=== PATIENT | male | born 1940 | race Caucasian/White ===

== ENCOUNTER 2018-06-07 08:03 | Day surgery (SDC) | payer MEDICARE ==
[2018-06-05 09:19] VITALS: BMI 32.3
[2018-06-07] MEDS ORDERED: Lidocaine 2% Jelly (Uro-Jet) ONE (10:45)
[2018-06-07] MEDS ORDERED: Midazolam 2 MG/2 ML VIAL ONE (10:45)
[2018-06-07] MEDS ORDERED: Iohexol 240 (50 ml) ONE (10:45)
[2018-06-07] MEDS ORDERED: cefTRIAXone 1 gm 1 GM/100 ML BAG IVPB ONE (10:45)
[2018-06-07] MEDS ORDERED: Propofol 10 mg/ml Inj (20 ML) ONE (10:50)
[2018-06-07 13:05] VITALS: PULSE 86; RESP 18; O2SAT 96
[2018-06-07 13:32] VITALS: BP 132/93; TEMP 97.7
--- NOTE | 2018-06-07 22:44 | OP ---
PROCEDURE DATE: 06/07/2018 LOCATION: [facility]. PREOPERATIVE DIAGNOSES: Urethral stricture, gross hematuria. POSTOPERATIVE DIAGNOSES: Urethral stricture, benign prostatic hyperplasia. PROCEDURE: Cystoscopy with optical internal urethrotomy and placement of Schofield catheter. SURGEON: Emile Castillo MD OPERATIVE DICTATION: The patient was placed in lithotomy position, prepped and draped in the usual fashion and premedicated with 1 g of Rocephin IV piggyback. A 22-Palauan scope was introduced per urethra, and the mid urethra revealed a moderate stricture, so we could not advance the instrument. Under fluoroscopic guidance, I advanced a Glidewire into the bladder. We then used this throughout the case as a safety. The cystoscope was removed, and then an optical urethrotome was introduced per urethra alongside the guidewire. An incision was made at the 12 o'clock position. We were able to advance the scope proximally to the areas of incision. These areas were quite tight and fibrotic suggesting previous resections in these areas as well. Finally, I was able to remove the scope and replaced with a 17-Palauan scope that I was able to introduce into the bladder. The bladder neck was reasonably patent and not as tight as when previously seen a few years ago for previous cystoscopy. The bladder did not have any tumors or calculi. The was no active bleeding from the prostate or the bladder. We now decided to introduce a Councill 17-Palauan catheter over the guidewire after of course removing the urethrotome. This was done atraumatically. The patient will be sent home with a leg bag. Emile Castillo MD
--- NOTE | 2018-06-08 10:49 | RAD ---
PROCEDURE: HISTORY: As Above COMPARISON: None TECHNIQUE: Total fluoroscopic time utilized during the procedure: 1.9 seconds. Total dose 0.37547 mGy m squared FINDINGS: Submitted images from the current procedure: 1 please refer to the physician's notes performing the procedure. IMPRESSION: Less than 1 hour fluoroscopic time utilized during performance of the procedure
== END 2018-06-07 13:35 | disposition home or self-care (01) ==
LOC: C.SDS 08:03
PROVIDERS: ATTEND Urology
DX: N35.919 Unspecified urethral stricture, male, unspecified site (principal); R31.0 Gross hematuria; E11.9 Type 2 diabetes mellitus without complications; I10 Essential (primary) hypertension; E78.5 Hyperlipidemia, unspecified; F32.9 Major depressive disorder, single episode, unspecified
CPT/HCPCS: 52276; 82948; J0696

== ENCOUNTER 2018-06-14 05:21 | Emergency (ER) | payer MEDICARE, OTHER ==
[2018-06-14 05:21] VITALS: BMI 32.3
[2018-06-14 05:42] VITALS: O2SAT 98
--- NOTE | 2018-06-14 05:43 | C.PDOC ---
History Of Present Illness Patient presents to the ER with a complaint of a headache that woke him up from sleep this morning. He checked his blood pressure at home and noticed it was elevated prompting ER visit. However, on arrival to ER patient's pressure and headache have improved. Denies vision changes, weakness, fever, chills, nausea, or vomiting. Time Seen by Provider: 06/14/18 05:43 Chief Complaint (Nursing): High Blood Pressure History Per: Patient History/Exam Limitations: no limitations Onset/Duration Of Symptoms: Hrs Current Symptoms Are (Timing): Better Associated Symptoms: Headache. denies: Chest Pain, Dyspnea, Dizziness, Blurred Vision, Focal Weakness Quality Of Symptoms: Asymptomatic Severity: Moderate Pain Scale Rating Of: 4 Exacerbating Factor(s): Pos: None Recent travel outside of the [place]: No Past Medical History Reviewed: Historical Data, Nursing Documentation, Vital Signs Vital Signs: Last Vital Signs Temp 97.9 F 06/14/18 05:35 Pulse 91 H 06/14/18 05:35 Resp 14 06/14/18 05:35 BP 155/93 H 06/14/18 05:35 Pulse Ox 98 06/14/18 05:35 - Medical History PMH: Depression, Fractures (right great toe), HTN, Hypercholesterolemia Denies: Chronic Kidney Disease - [facility] Procedures CYSTOSCOPY NEC (05/03/15) INSERT INDWELLING CATH (04/14/15) OTH TRANSURETHRAL PROSTATECTOMY (05/03/15) PACKED CELL TRANSFUSION (05/03/15) TU BLADDER CLEARANCE (05/03/15) URETH STRICTURE RELEASE (04/14/15) Family History: States: No Known Family Hx - Social History Hx Tobacco Use: No Hx Alcohol Use: No Hx Substance Use: No Review Of Systems Constitutional: Negative for: Fever, Chills, Weakness Eyes: Negative for: Vision Change Cardiovascular: Negative for: Chest Pain, Palpitations Respiratory: Negative for: Cough, Shortness of Breath Gastrointestinal: Negative for: Nausea, Vomiting Neurological: Positive for: Headache Physical Exam - Physical Exam Appears: Non-toxic Skin: Warm, Dry Head: Normacephalic Eye(s): bilateral: Normal Inspection, PERRL, EOMI Oral Mucosa: Moist Chest: Symmetrical, No Tenderness Cardiovascular: Rhythm Regular Respiratory: No Rales, No Rhonchi, No Wheezing Gastrointestinal/Abdominal: Soft, No Tenderness Neurological/Psych: Oriented x3, Other (No focal deficits) ED Course And Treatment - Laboratory Results Result Diagrams: 06/14/18 05:58 06/14/18 05:58 ECG: Interpreted By Me, Viewed By Me ECG Rhythm: Sinus Rhythm (85), Nonspecific Changes O2 Sat by Pulse Oximetry: 98 (Room air) Pulse Ox Interpretation: Normal - Radiology CXR: Interpreted by Me, Viewed By Me CXR Interpretation: Yes: Other (unchanged from 06/05/18). No: Infiltrates, Fracture, Pnemothorax Progress Note: CT head, blood work, EKG, CXR, and urinalysis ordered. Reevaluation Time: 06:20 Reassessment Condition: Improved Disposition Counseled Patient/Family Regarding: Studies Performed, Diagnosis, Need For Followup - Disposition Referrals: Delia Ortega MD [Medical Doctor] - Disposition: HOME/ ROUTINE Disposition Time: 05:43 Condition: FAIR Instructions: High Blood Pressure (DC) Forms: [employer] (Kazakh) - Clinical Impression Clinical Impression: Hypertension - Scribe Statement The provider has reviewed the documentation as recorded by the [employer] All medical record entries made by the Scribe were at my direction and personally dictated by me. I have reviewed the chart and agree that the record accurately reflects my personal performance of the history, physical exam, medical decision making, and the department course for this patient. I have also personally directed, reviewed, and agree with the discharge instructions and disposition.
[2018-06-14 06:05] LABS: BASO # 0.1 K/uL (0.0-0.2); EOS # 0.6 K/uL (0.0-0.7); EOS % 5.6 % (0.0-4.0); HEMOGLOBIN 14.2 g/dL (12.0-18.0); LYMPH # 1.8 K/uL (1.0-4.3); LYMPH % 18.1 % (20.0-40.0); MEAN CORPUSCULAR HEMOGLOBIN 28.9 pg (27.0-31.0); MEAN PLATELET VOLUME 8.2 fL (7.2-11.7); MONO # 0.8 K/uL (0.0-0.8); NEUT # 6.7 K/uL (1.8-7.0); NEUT % 67.3 % (50.0-75.0); RBC 4.91 Mil/uL (4.40-5.90); RED CELL DISTRIBUTION WIDTH 14.6 % (11.5-14.5); WHITE BLOOD COUNT 9.9 K/uL (4.8-10.8)
[2018-06-14 06:15] LABS: INR 1.1; PROTHROMBIN TIME 12.1 SECONDS (9.7-12.2)
[2018-06-14 06:16] LABS: SQUAMOUS EPITHIAL 1 /hpf (0-5); URINE BACTERIA RARE (<OCC); URINE BILIRUBIN NEGATIVE (NEGATIVE); URINE BLOOD 1+ (NEGATIVE); URINE CLARITY Clear (Clear); URINE COLOR Straw (YELLOW); URINE GLUCOSE (UA) NORMAL (Normal); URINE LEUKOCYTE ESTERASE TRACE Leu/uL (Negative); URINE PROTEIN NEGATIVE (NEGATIVE); URINE UROBILINOGEN NORMAL mg/dL (0.2-1.0)
[2018-06-14 06:17] LABS: ALB/GLOB RATIO 1.3 (1.0-2.1); ALBUMIN 4.4 g/dL (3.5-5.0); ALT/SGPT 34 U/L (21-72); AST/SGOT 27 U/L (17-59); BLOOD UREA NITROGEN 10 mg/dL (9-20); CALCIUM 9.9 mg/dl (8.6-10.4); GFR NON-AFRICAN AMERICAN > 60
[2018-06-14 06:59] VITALS: BP 131/87; PULSE 84; RESP 16; TEMP 98.5
--- NOTE | 2018-06-14 07:32 | RAD ---
Date of service: 06/14/2018 PROCEDURE: CHEST RADIOGRAPH, 1 VIEW HISTORY: chest pain COMPARISON: Chest radiographs 06/05/2018.. FINDINGS: LUNGS: Diminished inspiratory volume is noted in the interval. Mild crowding of the bronchovascular markings noted at both bases. No definitive infiltrate bilaterally. Borderline patchy density right base with none on the left. PLEURA: No pneumothorax or pleural fluid seen. CARDIOVASCULAR: Cardiomediastinal silhouette appears stable. No pulmonary vascular congestion. OSSEOUS STRUCTURES: No significant abnormalities. VISUALIZED UPPER ABDOMEN: Normal. OTHER FINDINGS: None. IMPRESSION: Diminished inspiratory volume crowds the bronchovascular markings at the bases bilaterally. Limited patchy densities difficult to exclude at the right base though this may reflect overlap of bronchovascular markings with ribs. Clinically correlate further. PA review submitted.
--- NOTE | 2018-06-14 08:14 | CT ---
Date of service: 06/14/2018 PROCEDURE: CT HEAD WITHOUT CONTRAST. HISTORY: Headache. Hypertension. COMPARISON: None available. TECHNIQUE: Axial computed tomography images were obtained through the head/brain without intravenous contrast. Radiation dose: Total exam DLP = 1170.57 mGy-cm. This CT exam was performed using one or more of the following dose reduction techniques: Automated exposure control, adjustment of the mA and/or kV according to patient size, and/or use of iterative reconstruction technique. FINDINGS: HEMORRHAGE: No intracranial hemorrhage. BRAIN: No mass effect or edema. Scattered focal lucencies in the subcortical and periventricular white matter suggestive for chronic microvascular ischemic change. Prominent calcifications along the anterior falx. Right basal ganglia lacunar infarct. Age-appropriate cerebral and cerebellar atrophy. VENTRICLES: Unremarkable. No hydrocephalus. CALVARIUM: Unremarkable. PARANASAL SINUSES: Mild mucosal thickening of the ethmoid air cells. MASTOID AIR CELLS: Unremarkable as visualized. No inflammatory changes. OTHER FINDINGS: Intracranial arterial calcifications. IMPRESSION: Chronic microvascular ischemic change. Punctate right basal ganglia lacunar infarct. Age-appropriate cerebral and cerebellar atrophy. Mild sinus mucosal disease. If symptoms persists, consider correlation with MRI. These findings were preliminarily reported by Dr. Perri Hoyt from [facility] rad at 6:49 a.m. on 06/14/2018.
== END 2018-06-14 06:59 | disposition home or self-care (01) ==
LOC: C.ER 05:21
DX: I10 Essential (primary) hypertension (principal)